=== PATIENT | male | born 1945 ===

== ENCOUNTER → 2017-09-13 | Day surgery (SDC) | payer MEDICARE ==
[~2017-09-13] MED LIST: Lactated Ringer's 1,000 ML IV ONE; Propofol 10 mg/ml Inj (20 ML) ONE
[2017-09-13 08:49] VITALS: BMI 26.6
[2017-09-13 11:33] VITALS: TEMP 97.3
[2017-09-13 13:18] VITALS: BP 105/61; PULSE 50; RESP 16; O2SAT 98
== END | disposition home or self-care (01) ==
LOC: C.ENDO 08:07
PROVIDERS: ATTEND Internal Medicine Gastroenterology
DX: Z12.11 Encounter for screening for malignant neoplasm of colon (principal); D12.5 Benign neoplasm of sigmoid colon; K64.1 Second degree hemorrhoids
CPT/HCPCS: 45385; 88305; J2001; J2704; J7120